=== PATIENT | female | born 1990 | race Caucasian/White ===

== ENCOUNTER → 2017-03-09 07:00 | Outpatient (CLI) | payer OTHER, SELFPAY ==
[2017-03-09 07:26] LABS: Bedside Glucose 75 mg/dL (70-110)
[2017-03-09 09:20] LABS: Glucose GTT-Gestation. Fasting 70 mg/dL (<105)
[2017-03-09 09:20] LABS: Glucose GTT-Gestational 1 Hr 133 mg/dL (<190)
[2017-03-09 11:01] LABS: Glucose GTT-Gestational 3 Hr 109 L (<145)
[2017-03-09 11:02] LABS: Glucose GTT-Gestational 2 Hr 106 mg/dL (<165)
--- OUTSIDE RECORDS SUMMARY | 2017-04-20 12:35 | XMS RPT_ITS ---
:1990 Author Organization OHIP Care Team Providers Name Role Phone Jewels Cortés Attending Unavailable Primay Care Physicia, No Primary Care Unavailable Jewels Cortés Attending Unavailable Primay Care Physicia, No Primary Care Unavailable Jewels Cortés Attending Unavailable Primay Care Physicia, No Primary Care Unavailable Jewels Cortés Attending Unavailable Primay Care Physicia, No Primary Care Unavailable PROBLEMS PROBLEMS DATE TYPE CONDITION / CODE ATTENDING STATUS SOURCE 03/05/2017 Unknown Z34.83 - Jewels Cortés Active [place] Encounter for [facility] supervision [facility] other normal Repository , third trimester / Z34.83(ICD-10) 11/24/2016 Unknown ENCOUNTER FOR Jewels Cortés Active [place] [facility]VSN OF [facility]ORMAL [facility] , [facility] TRIMESTER / Repository Z34.81(ICD-10) 11/24/2016 Unknown WEEKS OF Jewels Cortés Active [place] GESTATION OF Community NOT Hospital SPECIFIED / Repository Z3A.00(ICD-10) 11/14/2016 Unknown ENCOUNTER FOR Jewels Cortés Active [place] SCREENING FOR [facility] MALIGNANT Hospital NEOPLASM OF Repository CERVIX / Z12.4(ICD-10) 11/14/2016 Unknown ENCNTR SCREEN FOR Jewels Cortés Active [place] INFECTIONS W SEXL [facility] Z11.3(ICD-10) Repository PROCEDURES PROCEDURES No Procedure Records FoundRESULTS RESULTS GESTATIONAL GTT 3HR Collected: 03/09/2017 Status: F Source: CHRISTINE 100G 7:15 AM [facility] REPOSITORY Order Comment: Is Patient Fasting? Y TYPE CODE TESTS RESULT OUT OF RANGE REFERENCE UNITS LAB L501.0650 Normal <105 mg/dL GLU 70 GTT-FASTING Result Comment: GLUCOSE TOLERANCE TEST FOR Reference Interval GESTATIONAL DIABETES Fasting <105 mg/dL 1 hour <190 mg/dl 2 hour <165 mg /dl 3 hour <145 mg/dl LAB L501.0660 Normal <190 mg/dL GLU GTT- 1HR 133 LAB L501.0680 Normal <145 L GLU GTT- 3HR 109 LAB L501.0670 Normal <165 mg/dL GLU GTT- 2HR 106 Performed By: #### L500.4710 ####[facility] [address] [facility] [address] [place], [place], [address] BEDSIDE GLUCOSE Collected: 03/09/2017 Status: F Source: CHRISTINE 7:11 AM [facility] REPOSITORY TYPE CODE TESTS RESULT OUT OF RANGE REFERENCE UNITS LAB L501.080 Normal 70-110 mg/dL BEDSIDE 75 GLU Result Comment: MANAGEMENT OF PATIENT CARE PER NURSING PROTOCOL Performed By: #### L501.080 ####[facility] [address] [address] CBC-COMPLETE BLOOD CNT Collected: 03/05/2017 Status: F Source: CHRISTINE NO DIFF 4:06 PM [facility] REPOSITORY TYPE CODE TESTS RESULT OUT OF RANGE REFERENCE UNITS LAB L100.1000 Normal 4.4-11.0 K/mm3 WBC 7.5 LAB L100.1200 Low 4.2-5.4 M/mm3 RBC 3.57 LAB L100.1300 Low 12.0-15.0 g/dl HGB 11.1 LAB L100.1400 Low 37-47 % HCT 32.5 LAB L100.1500 Normal 81-99 fL MCV 91.0 LAB L100.1600 Normal 27.0-32.0 pg MCH 31.1 LAB L100.1700 Normal 32-36 g/gl MCHC 34.2 LAB L100.1810 Normal 11.6-14.6 % RDW 12.9 CV LAB L100.1820 Normal 35.1-43.9 fl RDW 41.8 SD LAB L100.1900 Normal 150-450 K/mm3 PLT 225 LAB L100.2000 Normal 6.2-12.0 fl MPV 11.4 Performed By: #### L100.0500 ####[facility] [address] [place], [address] GLUCOSE CHALLENGE GEST Collected: 03/05/2017 Status: F Source: CHRISTINE 1H 50G 4:06 PM [facility] REPOSITORY TYPE CODE TESTS RESULT OUT OF RANGE REFERENCE UNITS LAB L501.0250 High 70-140 mg/dL GLU 147 GEST 50g 1H Performed By: #### L501.0250 ####[facility] [address] [place], [address] CBC W/DIFF, AUTOMATED Collected: 11/14/2016 Status: F Source: CHRISTINE 3:46 PM [facility] REPOSITORY TYPE CODE TESTS RESULT OUT OF RANGE REFERENCE UNITS LAB L100.1000 Normal 4.4-11.0 K/mm3 WBC 7.2 LAB L100.1200 Low 4.2-5.4 M/mm3 RBC 4.14 LAB L100.1300 Normal 12.0-15.0 g/dl HGB 12.2 LAB L100.1400 Low 37-47 % HCT 35.8 LAB L100.1500 Normal 81-99 fL MCV 86.5 LAB L100.1600 Normal 27.0-32.0 pg MCH 29.5 LAB L100.1700 Normal 32-36 g/gl MCHC 34.1 LAB L100.1810 Normal 11.6-14.6 % RDW 12.3 CV LAB L100.1820 Normal 35.1-43.9 fl RDW 39.0 SD LAB L100.1900 Normal 150-450 K/mm3 PLT 246 LAB L100.2000 Normal 6.2-12.0 fl MPV 11.0 LAB L100.2100 High 47-70 % NEUT% 73.8 LAB L100.2200 Low 19-41 % LY% 17.4 LAB L100.2300 Normal 0-10 % MONO% 5.8 LAB L100.2400 Normal 0-5 % EO% 2.8 LAB L100.2500 Normal 0-1 % BASO% 0.1 LAB L100.2550 Normal 0.0-0.9 % IM 0.100 GRAN % Result Comment: IG% - Immature Granulocytes (promyelocytes, myelocytes andmetamyelocytes) > 1% indicates that a LEFT SHIFT is Present. LAB L100.2620 Normal 2.0-7.7 X10 3/uL Absolute Neut 5.3 LAB L100.2720 Normal 0.83-4.51 X10 3/ul Absolute Lymph 1.26 Performed By: #### L100.0100 ####[facility] [address] [place], [place], [address] URINALYSIS, ROUTINE Collected: 11/14/2016 Status: F Source: CHRISTINE (DIPSTICK) 3:46 PM [facility] REPOSITORY Order Comment: How was Urine Obtained? Urine, Random TYPE CODE TESTS RESULT OUT OF RANGE REFERENCE UNITS LAB L400.3000 Normal Yellow COLOR Yellow LAB L400.3050 Normal Clear CLARITY Clear LAB L400.3200 Normal Normal mg/dl GLUCOSE, UR Normal LAB L400.3300 Normal Negative mg/dL BILIRUBIN Negative URINE LAB L400.3400 Normal Negative mg/dl KETONE UR Negative LAB L400.3465 Normal 1.002-1.030 SP.GR. 1.025 DIPSTX LAB L400.3550 Normal 5.0 - 8.0 pH UR 5.0 LAB L400.3600 Normal Negative mg/dl PROT DIPSTX Negative LAB L400.3700 Normal Normal mg/dl UROBILI Normal LAB L400.3750 Normal Negative NITRITE UR Negative LAB L400.3780 Normal Negative /ul OCCULT Negative BLOOD-UR LAB L400.3800 Normal Negative /ul LEUK Negative ESTERASE Performed By: #### L400.2010 ####[facility] [address] [place], [place], [id number] THYROID STIM HORMONE Collected: 11/14/2016 Status: F Source: [place] (TSH) 3:46 PM [facility] REPOSITORY TYPE CODE TESTS RESULT OUT OF RANGE REFERENCE UNITS LAB L501.9520 Normal 0.358-3.74 uIU/mL TSH 1.14 Performed By: #### L501.9520 ####[facility] [address] [place], [place], [id number] T AND S-NO Collected: 11/14/2016 Status: F Source: CHRISTINE CHARGE W/PNP 3:46 PM [facility] REPOSITORY Order Comment: Reason for Type AND Screen/Red Cells: PRENATALSurgery? N TYPE CODE TESTS RESULT OUT OF RANGE REFERENCE UNITS LAB B10.0800 Normal BLOOD O TYPE GEL POSITIVE LAB B100.4050 Normal Ab NEGATIVE SCREEN GEL Performed By: #### B100.7550 ####[facility] [address] [place], [place], [id number] RUBELLA IGG Collected: 11/14/2016 Status: F Source: [place] 3:46 PM [facility] REPOSITORY TYPE CODE TESTS RESULT OUT OF RANGE REFERENCE UNITS LAB L509.4000 Normal IU/mL Rubella 43.4 IgG Result Comment: Antibody results Interpretation of Immune Status < 5 IU/ml Presumed Non-immune 5 - < 10 IU/ml Equivocal > or = 10 IU/ml Presumed Immune Performed By: #### L509.4000 ####[facility] [address] [place], [place], [id number] HEPATITIS B SURFACE Collected: 11/14/2016 Status: F Source: CHRISTINE AG 3:46 PM [facility] REPOSITORY TYPE CODE TESTS RESULT OUT OF RANGE REFERENCE UNITS LAB L3100.0400 Normal Negative HB Negative SURF AG Result Comment: Performed at: [facility] [id number] Director: Reynaldo Cueva PhD, Phone: [phone] Performed By: #### L3100.0390, L3100.0625, L3900.0100 ####[facility] (refer to report for specific site)refer to report for address and phone number HEPATITIS C ANTIBODIES Collected: 11/14/2016 Status: F Source: CHRISTINE 3:46 PM [facility] REPOSITORY TYPE CODE TESTS RESULT OUT OF RANGE REFERENCE UNITS LAB L3100.0650 Normal 0.0-0.9 s/co ratio HEP C <0.1 AB Result Comment: Negative: < 0.8 Indeterminate: 0.8 - 0.9 Positive: > 0.9 The CDC recommends that a positive HCV antibody result be followed up with a HCV Nucleic Acid Amplification test (480731). Performed By: #### L3100.0390, L3100.0625, L3900.0100 ####[facility] (refer to report for specific site)refer to report for address and phone number HIV SCREEN 4TH GEN Collected: 11/14/2016 Status: F Source: CHRISTINE W/CONFIRM 3:46 PM [facility] REPOSITORY TYPE CODE TESTS RESULT OUT OF RANGE REFERENCE UNITS LAB L3900.0180 Normal Non Reactive Non HIV1/0/2 Reactive SCREEN Performed By: #### L3100.0390, L3100.0625, L3900.0100 ####[facility] (refer to report for specific site)refer to report for address and phone number RPR Collected: 11/14/2016 Status: F Source: CHRISTINE 3:46 PM [facility] REPOSITORY TYPE CODE TESTS RESULT OUT OF REFERENCE UNITS RANGE LAB L700.5100 Normal NONREACTIVE NONREACTIVE RPR Performed By: #### L700.5100 ####[facility] [address] [place], [place], [id number] CT/NG WCH BY PCR Collected: 10/24/2016 Status: F Source: CHRISTINE 4:30 PM [facility] REPOSITORY TYPE CODE TESTS RESULT OUT OF RANGE REFERENCE UNITS LAB L8200.2100 Normal Negative Negative Chlam Trac PCR LAB L8200.2200 Normal Negative NG Negative by PCR Performed By: #### L8200.2000 ####[facility] [address], [address] PAP I-G W/RFX HRHPV Collected: 10/24/2016 Status: F Source: [place] 4:30 PM [facility] REPOSITORY Order Comment: CYTOLOGY INFORMATION:- CLINICAL INFORMATION: - DATE LMP/MENOPAUSE: LMP/ 08/25/16- COLLECTION VIAL: Thin Prep Vial- POWER LINE INSTALLER SOURCE: CERVICAL/ENDOCERVICAL- COLLECTION TECHNIQUE: BRUSH/SPATULASpecimen Comment: [id number] Comment: No. of containers..01 ThinPrep Vial TYPE CODE TESTS RESULT OUT OF RANGE REFERENCE UNITS LAB L7400.0800 Normal . DIAGN Comment Result Comment: NEGATIVE FOR INTRAEPITHELIAL LESION AND MALIGNANCY.FUNGAL ORGANISMS MORPHOLOGICALLY CONSISTENT WITH DORIAN SPECIES AREPRESENT.CELLULAR CHANGES ASSOCIATED WITH INFLAMMATION ARE PRESENT. LAB L7400.0900 Normal . ADEQ Comment Result Comment: Satisfactory for evaluation. Endocervical and/or squamous metaplasticcells (endocervical component) are present. LAB L7400.1400 Normal . PERFORM Comment Result Comment: Ramos Gomes, Money Position Officer (ASCP) LAB L7400.1720 Normal . Path Comment prov. ICD9 Result Comment: R87.5 LAB L7400.2575 Normal . TEST Comment METHOD Result Comment: This liquid based ThinPrep(R) pap test was screened withthe use of an image guided system. LAB L7400.2600 Normal . COMM . LAB L7400.2700 Normal . PAPSMR Comment Result Comment: The Pap smear is a screening test designed to aid in thedetection of premalignant and malignant conditions of theuterine cervix. It is not a diagnostic procedure andshould not be used as the sole means of detecting cervicalcancer. Both false-positive and false-negative reports dooccur. LAB L7400.2800 Normal . HPV Comment RFLX Result Comment: The HPV DNA reflex criteria were not met with this specimenresult therefore, no HPV testing was performed.Performed at: - [facility] [id number] Director: Shy Guerra MD, Phone: [phone] Performed By: #### L7400.0350 ####[facility] (refer to report for specific site) refer to report for address and phone number ALLERGIES ALLERGIES DATE TYPE / CODE NAME / CODE REACTION SEVERITY SOURCE 03/02/2014 Drug No Known Unknown [place] [facility] Allergy/4160 Allergies/F00 Hospital 72666(SNOMED 2687216(RXNOR Repository CT) M) 03/02/2014 Drug No Known [place] [facility] Allergy/4160 Allergies/F00 Hospital 08082(SNOMED 7470944(RXNOR Repository CT) M) ENCOUNTERS ENCOUNTERS ADMIT/DISCHARGE ACCOUNT ADMITTING ENCOUNTER LOCATION SOURCE NUMBER CLASS 03/09/2017 [id number] Ambulatory [place] 2 [facility] ing:LAB Repository 03/05/2017 [id number] Ambulatory [place] Christine 4 [facility] ing:WOBLAB Repository 11/14/2016 [id number] [place] 8 [facility] ing:WOBLAB Repository 10/24/2016 [id number] Ambulatory [place] Christine 0 [facility] ing:LABSPEC Repository PAYERS PAYERS ENCOUNTER GUARANTOR PAYER SUBSCRIBER SOURCE 03/09/2017 Karen [id number] Primary Karen NeerDOB: Christine [facility] [address] Insurance:BALDO [id number] [address]Xfo: (330) Number: [id number] Repository [phone] () Date:[id number] MEDICAL CLAIMSPO [facility] [address] [place] [address]AB: 03/09/2017 Secondary NOT GIVENUNK [place] Insurance:SELF PAY [facility] Number: Effective Repository Date:2017-03-06 03/05/2017 Karen [id number] Primary Karen NeerDOB: Christine [address] Insurance:BALDO [id number] [address]Czs: (330) Number: [id number] Repository [phone] (HP) Date:[id number] MEDICAL CLAIMSPO [address] [address]XM: 03/05/2017 Secondary NOT GIVENUNK [place] Insurance:SELF PAY [facility] Number: Effective Repository Date:2017-03-05 11/14/2016 KAREN [id number] [facility]:BALDO [id number] [address]Jai: (330) Number: [id number] Repository [phone] () Date:ATTN MEDICAL CLAIMSPO [address], [place] [address]CX: 10/24/2016 KAREN [id number] Primary KAREN NEERDOB: Christine [address] Insurance:BALDO [id number] [address]Dqw: (330) Number: [id number] Repository [phone] () Date:ATTN MEDICAL CLAIMSPO [address], [place] [address]PE:
== END ==
PROVIDERS: Visit Provider Obstetrics & Gynecology
DX: O24.912 Unspecified diabetes mellitus in pregnancy, second trimester (principal); Z3A.00 Weeks of gestation of pregnancy not specified
CPT/HCPCS: 36415; 82951; 82952; 82962

== ENCOUNTER → 2017-05-01 18:55 | Outpatient (CLI) | payer OTHER, SELFPAY ==
[2017-05-01 20:28] LABS: Group B Strep DNA By PCR Negative (Negative); Internal Control PASS; Probe Check PASS; Specimen Processing Control PASS
== END ==
PROVIDERS: Visit Provider Obstetrics & Gynecology
DX: Z34.93 Encounter for supervision of normal pregnancy, unspecified, third trimester (principal); Z3A.36 36 weeks gestation of pregnancy
CPT/HCPCS: 87081; 87653

== ENCOUNTER 2017-05-19 02:30 | Inpatient (IN) | payer OTHER, SELFPAY ==
[2017-05-19 00:39] VITALS: BMI 30.1
[2017-05-19] MEDS: Lactated Ringers 1,000 ML 50 ML IV ×3 (03:00→11:24)
[2017-05-19 03:12] LABS: Hematocrit 34.1 % (37-47); Hemoglobin 11.5 g/dl (12.0-15.0); Mean Corp Hgb Conc 33.7 g/gl (32-36); Mean Corpuscular Hgb 29.9 pg (27.0-32.0); Mean Corpuscular Volume 88.6 fL (81-99); Mean Platelet Vol. 11.5 fl (6.2-12.0); Platelet Count 228 K/mm3 (150-450); RBC Distribution Width CV 14.1 % (11.6-14.6); RBC Distribution Width SD 44.1 fl (35.1-43.9); Red Blood Count 3.85 M/mm3 (4.2-5.4); Scan Indicated on CBC? Y/N NO; White Blood Count 11.6 K/mm3 (4.4-11.0)
[2017-05-19] MEDS: fentaNYL-bupivacaine (epidural) 100 ML BAG EPIDURAL ×2 (09:30→13:32)
--- NOTE | 2017-05-19 10:59 | PCM.PN.BLA ---
Progress Note LABOR PROGRESS NOTE Comfortable with epidural. No complaints. AVSS GEN - NAD, AAO x 3 FHR 140, moderate variability, + accelerations, no decelerations TOCO 2-3/10 min SVE 5/60/-2, soft and midposition A/P: 27yo @ 39 2/7wga in latent labor, Cat I FHR -Amniotomy performed with meconium stained fluid. Discussed potential for aspiration, will call Peds for delivery. -Repeat SVE in 2 hours or sooner per maternal/ si/sx. -Maternal and statuses overall reassuring
[2017-05-19] MEDS: Oxytocin 30 units/NS 500 ml 30 UNITS/500 ML IV.SOLN IV (13:15)
[2017-05-19] MEDS: Acetaminophen 325 MG Tablet PO (13:56)
--- NOTE | 2017-05-19 14:00 | PCM.PN.BLA ---
Progress Note Informed by RN that patient with Tm 100.4. Vitals and FHR reviewed with no maternal or tachycardia and FHT Cat I. Patient reported feeling well with shaking but denied chills. No complaints. Abdomen soft, non-tender and no mucupurulent amnionic fluid. I advised IV Gentamicin/Ampicillin for maternal fever, likely subclinical chorioamnionitis. Patient in agreement. Will start. Continue in labor.
[2017-05-19] MEDS: Oxytocin 30 units/NS 500 ml 30 UNITS/500 ML IV.SOLN 167 UNITS IV (14:06)
[2017-05-19] MEDS: Oxytocin 30 units/NS 500 ml 30 UNITS/500 ML IV.SOLN 334 UNITS IV (15:36)
--- NOTE | 2017-05-19 16:01 | PCM.OB.VAG ---
- Problem List (1) 39 weeks gestation of Status: Acute (2) (spontaneous vaginal delivery) Status: Acute Vaginal Delivery Maternal Presentation: - - Latent labor Method of Induction: Amniotomy Amniotic Membrane Rupture Type: Artificial Rupture of Membrane time: 1053h on 05/19/17 Amniotic Fluid Description: Lightly stained meconium Final SHIRLENE: 05/24/17 Final SHIRLENE Source: US <20 weeks Gestational age: 39 Weeks and 2 Days Date of Procedure: 05/19/17 Pre-Operative Diagnosis: 39 2/7wga, meconium, maternal fever Post-Operative Diagnosis: 39 2/7wga, meconium, maternal fever Surgery/ Procedure Performed: Spontaneous Vaginal Delivery Anesthesiologist: Swapna Subramanian Type of Anesthesia: Epidural Description of Procedure: Patient was FD/+4 on my arrival with Cat II FHR with variable decelerations with contractions. She pushed to deliver a vigorous male infant in direct OA. The was placed on the maternal abdomen and further attended by nursery personnel. The cord was doubly clamped and cut. Cord gases were obtained. The placenta delivered spontaneously and appeared intact on inspection. A second degree perineal laceration was repaired using 3-0 Vicryl Rapide. Cord blood was obtained from the placenta. Presentation: Vertex Placental Delivery Description: Spontaneous Placenta Disposition: [facility] Cord Vessel Description: 3 Vessels Nuchal Cord Compression: Without compression Cord Gases drawn per routine: ABG, VBG Cord Entanglement: None Drain: Perales to straight drain Estimated Blood Loss: 400 ml Infant A gender: Male (1 minute): 8 (5 minute): 9 Episiotomy Description: None Laceration: Midline, Perineal Extension/lac, 2nd degree Medications given after delivery: IV Pitocin
--- NOTE | 2017-05-19 16:28 | DCINST_ITS ---
Discharge Diet: No Restrictions Discharge Activity: Return to Normal Activity, May Shower, May Take a Tub Bath May resume sexual activity in: 6 weeks Lifting Restrictions: 10-20 lb Call your doctor if you observe: Fever of 101 or Higher, Inability to urinate, Inability to have a bowel movement, Using more than one pad per hour, Shortness of breath, Chest pain, Calf discomfort, Uncontrolled pain Suture Line Care: Avoid Pulling/Pushing Cleanse incision/area with: Soap & Water Additional Instructions: If you experience any of the following, contact your healthcare provider. * Bleeding that soaks a pad every hour for 2 hours * Fever 100.4 or higher * Unrelieved incision or abdominal pain * Swelling, redness, discharge or bleeding from your incision or episiotomy site * Your incision begins to separate * Problems urinating (including inability to urinate or burning while urinating) . * Visual changes * Severe headache * Flu-like symptoms * Pain or redness in one of both of your breasts * Pain, warmth, tenderness or swelling in your legs, especially the calf area * Frequent nausea and vomiting * Symptoms of depression or anxiety If you experience any of the following, call 911 or go to the nearest Emergency Room. * Chest pain * Problems breathing * Seizure activity * Partial or complete paralysis of a body part, slurred speech, weakness or drooping of the face, or a sudden inability to walk or hold your balance Allergies/Adverse Reactions: Allergies No Known Allergies Allergy (Verified 05/19/17 04:53) Medications to take at Discharge Vits [Prenatabs FA ] 1 units PO DAILY 03/02/14 Docusate Sodium [Colace] 100 mg PO BID PRN PRN #60 cap 05/19/17 Naproxen 1 - 2 tab PO BID PRN #30 tab 05/19/17 The following prescriptions were given: Docusate Sodium [Colace] 100 mg PO BID PRN PRN #60 cap PRN Reason: Constipation Naproxen 1 - 2 tab PO BID PRN #30 tab PRN Reason: Pain Orders to be completed after discharge: Electric breast pump Location: None Selected Please Follow Up With: Jewels Cortés MD When: 6 weeks Primary Care Physician: Care Physician,No Primary [Primary Care Provider] -
[2017-05-19 20:30] VITALS: BP 112/68; PULSE 98; RESP 18; TEMP 36; O2SAT 98
[2017-05-20 00:25] VITALS: BP 102/59; PULSE 84; RESP 18; TEMP 36.7
[2017-05-20] MEDS: Acetaminophen 500 MG Tablet 1000 MG PO (00:27)
[2017-05-20 04:50] VITALS: BP 102/68; PULSE 78; RESP 18; TEMP 36.2
[2017-05-20 06:05] LABS: Hemoglobin 9.1 g/dl (12.0-15.0); Mean Corp Hgb Conc 32.5 g/gl (32-36); Mean Corpuscular Hgb 29.2 pg (27.0-32.0); Mean Corpuscular Volume 89.7 fL (81-99); Mean Platelet Vol. 10.8 fl (6.2-12.0); Platelet Count 192 K/mm3 (150-450); RBC Distribution Width CV 14.8 % (11.6-14.6); RBC Distribution Width SD 48.1 fl (35.1-43.9); Red Blood Count 3.12 M/mm3 (4.2-5.4)
[2017-05-20 06:11] LABS: Scan Indicated on CBC? Y/N NO
[2017-05-20 07:46] VITALS: BP 106/64; PULSE 84; RESP 16; TEMP 36.3; O2SAT 99
--- NOTE | 2017-05-20 08:27 | PCM.PN.OB ---
Patient Problems: Active and Suspected Problems 39 weeks gestation of (Acute) (spontaneous vaginal delivery) (Acute) Subjective: No issues overnight. Infant was started on antibiotics. She relates scant lochia and minimal pain. is going well. Objective: AVSS - Physical Exam General: Alert, Oriented x3, Cooperative, No apparent distress HEENT: Atraumatic, Normocephalic Lungs: Clear to auscultation, Normal air movement Cardiovascular: Regular rate, Regular Rhythm Abdomen: Soft, Non Tender, Non-Distended, - - Fundus firm and nontender, lochia scant Extremities: No edema, No Calf Tenderness Neurological: Neuro grossly intact Psych/Mental Status: Normal Affect, Appropriate, Alert and oriented to time, place, person, mood and affect Vital Signs Temp Pulse Resp BP Pulse Ox 97.4 F L 84 16 106/64 99 05/20/17 07:46 05/20/17 07:46 05/20/17 07:46 05/20/17 07:46 05/20/17 07:46 Oxygen Delivery Method Room Air Weight: 82.2 kg Body Mass Index (BMI) 30.1 Intake and Output for Last 24 Hours 05/18/17 05/19/17 05/20/17 23:59 23:59 23:59 Intake Total 3912 / 3912 Output Total 2100 / 2100 Balance 1812 / 1812 Laboratory Tests Past 24 Hrs 05/20/17 05:25 WBC 11.0 RBC 3.12 L Hgb 9.1 L Hct 28.0 L MCV 89.7 MCH 29.2 MCHC 32.5 RDW 14.8 H RDW Differential 48.1 H Plt Count 192 MPV 10.8 Medical Necessity - Tobacco Use Smoking Status: Never smoker Assessment/Plan Active and Suspected Problems 39 weeks gestation of (Acute) (spontaneous vaginal delivery) (Acute) 27yo PPD#1 s/p doing well. -Rh positive -Rubella immune - -Routine care
[2017-05-20 12:07] VITALS: BP 113/64; PULSE 92; RESP 16; TEMP 36.7; O2SAT 99
[2017-05-20 16:28] VITALS: BP 106/62; PULSE 83; RESP 16; TEMP 36.9
[2017-05-20 20:17] VITALS: BP 123/64; PULSE 104; RESP 18; TEMP 36
[2017-05-21 02:50] VITALS: BP 112/76; PULSE 67; RESP 18; TEMP 36.7
--- NOTE | 2017-05-21 07:25 | PCM.PN.OB ---
Patient Problems: Active and Suspected Problems 39 weeks gestation of (Acute) (spontaneous vaginal delivery) (Acute) Subjective: PPD#2 Doing well. Baby had been started on ABX, but all ok and abx stopped. Baby is discharged but still needs vision and hearing screen per pt. Nursing well. Minimal pain and bleeding. - Physical Exam General: Alert, Oriented x3, Cooperative, No apparent distress HEENT: Atraumatic Neck: Supple Abdomen: Soft - Fundus firm NT at approx umbilicus Neurological: Cranial nerves II-XII grossly intact Psych/Mental Status: Normal Affect Vital Signs Temp Pulse Resp BP Pulse Ox 98.0 F 67 18 112/76 99 05/21/17 02:50 05/21/17 02:50 05/21/17 02:50 05/21/17 02:50 05/20/17 12:07 Oxygen Delivery Method Room Air Weight: 82.2 kg Body Mass Index (BMI) 30.1 Intake and Output for Last 24 Hours 05/19/17 05/20/17 05/21/17 23:59 23:59 23:59 Intake Total 3912 / 3912 Output Total 2100 / 2100 Balance 1812 / 1812 Medical Necessity - Tobacco Use Smoking Status: Never smoker Assessment/Plan Active and Suspected Problems 39 weeks gestation of (Acute) (spontaneous vaginal delivery) (Acute) PPD#2 Stable pp. Dischg home today. RTO in 6 wk for pp check.
[2017-05-21 07:54] VITALS: BP 107/69; PULSE 70; TEMP 36.1
[2017-05-21 10:00] VITALS: RESP 18
--- NOTE | 2017-05-21 13:53 | NURSING ---
This nurse reviewed the charting completed by Dominique Villarreal, student nurse and it is complete.
== END 2017-05-21 11:40 | disposition home or self-care (01) | DRG 775 ==
LOC: WP 15:48 → WPOUT 05-22 07:22
PROVIDERS: Admitting Provider Obstetrics & Gynecology; Visit Provider Obstetrics & Gynecology
DX: O77.0 Labor and delivery complicated by meconium in amniotic fluid (principal); O41.1230 Chorioamnionitis, third trimester, not applicable or unspecified; O76 Abnormality in fetal heart rate and rhythm complicating labor and delivery; O70.1 Second degree perineal laceration during delivery; Z3A.39 39 weeks gestation of pregnancy; Z37.0 Single live birth
CPT/HCPCS: 59025; 59050; 85027; 86850; 86900; 99218; J7120; G0378